=== PATIENT | male | born 1975 | race African-American/Black ===

== ENCOUNTER 2018-06-17 01:07 | Inpatient (IN) | payer OTHER ==
[~2018-06-17] VITALS: Ht 167.6 cm; Wt 60.8 kg
[2018-06-17] VITALS (81 sets, daily range): BP systolic 101–169; BP diastolic 38–114
[~2018-06-17 01:07] MED LIST: CLON0.5T PO; Folic Acid PO; KEPPSOL PO; LORA2VIA34 PO; Multivitamins,Ther W-Minerals PO; PANT40TA4 PO; QUET100T PO; QUET400T PO; Sucralfate PO; Thiamine Hcl PO
[2018-06-17] MEDS ORDERED: EPINEPHRINE 1:1000 1 MG/ML AMP INJ SCH (01:14)
[2018-06-17] MEDS ORDERED: FAMOTIDINE 20MG/2ML VIAL IV ONE (01:15)
[2018-06-17] MEDS ORDERED: DIPHENHYDRAMINE 50MG/ML VIAL IV ONE (01:15)
[2018-06-17] MEDS ORDERED: METHYLPREDNISOLONE SOD SUCC 125 MG/2 ML VIAL IV ONE (01:15)
[2018-06-17] MEDS ORDERED: EPINEPHRINE 1:1000 1 MG/ML AMP INJ ONE (01:15)
[2018-06-17] MEDS ORDERED: ONDANSETRON HCL 4MG/2ML INJ IV STA (01:47)
[2018-06-17] MEDS ORDERED: SODIUM CHLORIDE 0.9% 1,000 ML IV ONE (01:47)
[2018-06-17] MEDS ORDERED: PROPOFOL 10MG/ML 100ML 100 ML IV ONE (01:59)
[2018-06-17] MEDS ORDERED: LORAZEPAM 2MG/ML CPJ IV ONE (02:00)
[2018-06-17 02:09] LABS: HEMATOCRIT. 32.4 % (42.0-52.0); HEMOGLOBIN. 9.8 g/dL (14.0-18.0); MEAN CORPUSCULAR HEMOGLOBIN 21.4 pg (28.0-32.0); MEAN CORPUSCULAR VOLUME 70.6 fL (80.0-94.0); MEAN PLATELET VOLUME 8.3 fl (7.4-10.4); PLATELET 264 x1000/uL (130-400); RED BLOOD CELL COUNT 4.59 mill/uL (4.7-6.1); RED CELL DISTRIBUTION WIDTH 28.2 % (11.6-14.6)
[2018-06-17 02:11] LABS: CHLORIDE 104 mEq/L (98-107)
[2018-06-17] MEDS: PROPOFOL 10MG/ML 100ML 100 ML IV SCH ×4 (02:40→18:05)
[2018-06-17 03:39] LABS: *AMPHETAMINES SCREEN URINE NEGATIVE (NEGATIVE); *BARBITURATES SCREEN URINE NEGATIVE (NEGATIVE); *BENZODIAZEPINES SCREEN URINE PRESUMTIVE POSITIVE (NEGATIVE); *COCAINE SCREEN URINE NEGATIVE (NEGATIVE)
[2018-06-17 03:40] LABS: CANNABINOID URINE SCREEN NEGATIVE (NEGATIVE); METHADONE URINE SCREEN NEGATIVE (NEGATIVE); OPIATES URINE SCREEN NEGATIVE (NEGATIVE); PHENCYCLIDINE URINE SCREEN NEGATIVE (NEGATIVE)
[2018-06-17 04:07] LABS: PLATELET ESTIMATE NORMAL
[2018-06-17 04:19] LABS: BG BASE EXCESS -1.3 mmol/L (-2.0-2.0); BG CARBOXYHEMOGLOBIN 0.8 % (0.5-1.5); BG DEOXYHEMOGLOBIN 0.5 % (0.0-5.0); BG FRACTION INSPIRED OXYGEN 100; BG METHEMOGLOBIN 0.5 % (0.0-1.5); BG OXYGEN SATURATION 99.5 % (92.0-98.5); BG OXYHEMOGLOBIN 98.2 % (94.0-97.0); BG PCO2 36.2 mmHg (35.0-45.0); BG PH 7.421 (7.350-7.450); BG PO2 362.6 mmHg (75.0-100.0); BG SAMPLE SITE LEFT RADIAL; BG TIDAL VOLUME(mL) 500 mL; BG TOTAL HEMOGLOBIN 7.6 g/dL (12.0-18.0); BG VENT MODE VENT - A/C; BG VENT RATE 12 set
[2018-06-17] MEDS: DEXT 5%/0.45% NACL 1000ML 1,000 ML IV SCH ×2 (07:17→18:06)
[2018-06-17] MEDS: METHYLPREDNISOLONE SOD SUCC 40 MG/ML VIAL IV SCH ×4 (08:32→23:34)
[2018-06-17] MEDS: FAMOTIDINE 20MG/2ML VIAL IV SCH ×2 (08:32→20:32)
[2018-06-17] MEDS: ENOXAPARIN 40MG/0.4ML SYR SUBCUT SCH (08:42)
[2018-06-17 08:55] LABS: BG BASE EXCESS -2.1 mmol/L (-2.0-2.0); BG CARBOXYHEMOGLOBIN 0.5 % (0.5-1.5); BG DEOXYHEMOGLOBIN 0.5 % (0.0-5.0); BG FRACTION INSPIRED OXYGEN 50; BG HCO3 ACT 22.9 mmol/L (22.0-26.0); BG OXYGEN SATURATION 99.5 % (92.0-98.5); BG PH 7.375 (7.350-7.450); BG SAMPLE SITE RIGHT BRACHIAL; BG TIDAL VOLUME(mL) 450 mL; BG TOTAL HEMOGLOBIN 9.7 g/dL (12.0-18.0); BG VENT MODE VENT - A/C; BG VENT RATE 12 set
[2018-06-17] MEDS ORDERED: IPRATROPIUM/ALBUTEROL 0.5-3(2.5)MG/3ML NEB HHN PRN (10:45)
[2018-06-17] MEDS: DIPHENHYDRAMINE 50MG/ML VIAL IV PRN ×2 (13:32→18:10)
[2018-06-17] MEDS: IPRATROPIUM/ALBUTEROL 0.5-3(2.5)MG/3ML NEB HHN SCH ×4 (14:44→23:40)
[2018-06-17] MEDS ORDERED: SUCCINYLCHOLINE CHLORIDE 200MG/10ML IV ONE (14:52)
[2018-06-17] MEDS ORDERED: ETOMIDATE 2MG/ML 10ML VIAL IV ONE (14:52)
[2018-06-17] MEDS: LORAZEPAM 2MG/ML CPJ IV PRN ×2 (18:51→23:38)
[2018-06-17] MEDS: PROPOFOL 10MG/ML 100ML 100 ML IV PRN (21:33)
[2018-06-18] VITALS (97 sets, daily range): BP systolic 102–184; BP diastolic 67–111
[2018-06-18] MEDS: DIPHENHYDRAMINE 50MG/ML VIAL IV PRN ×3 (01:10→14:19)
[2018-06-18] MEDS: PROPOFOL 10MG/ML 100ML 100 ML IV PRN ×6 (01:32→22:51)
[2018-06-18] MEDS: DEXT 5%/0.45% NACL 1000ML 1,000 ML IV SCH ×3 (02:31→22:50)
[2018-06-18] MEDS: LORAZEPAM 2MG/ML CPJ IV PRN ×3 (03:52→14:19)
[2018-06-18] MEDS: IPRATROPIUM/ALBUTEROL 0.5-3(2.5)MG/3ML NEB HHN SCH ×5 (04:11→21:13)
[2018-06-18] MEDS ORDERED: CLONIDINE 0.1MG TABLET PO PRN (04:30)
[2018-06-18] MEDS: METHYLPREDNISOLONE SOD SUCC 40 MG/ML VIAL IV SCH ×2 (05:01→12:46)
[2018-06-18 05:31] LABS: HEMOGLOBIN. 9.5 g/dL (14.0-18.0); MEAN CORPUSCULAR HEMOGLOBIN 21.7 pg (28.0-32.0); MEAN CORPUSCULAR VOLUME 70.8 fL (80.0-94.0); PLATELET 181 x1000/uL (130-400); RED BLOOD CELL COUNT 4.37 mill/uL (4.7-6.1); RED CELL DISTRIBUTION WIDTH 28.6 % (11.6-14.6)
[2018-06-18 05:34] LABS: CHLORIDE 102 mEq/L (98-107)
[2018-06-18 05:40] LABS: PHOSPHORUS 4.1 mg/dL (2.5-4.9)
[2018-06-18 08:00] LABS: BG BASE EXCESS 0.8 mmol/L (-2.0-2.0); BG CARBOXYHEMOGLOBIN 0.2 % (0.5-1.5); BG DEOXYHEMOGLOBIN 1.5 % (0.0-5.0); BG FRACTION INSPIRED OXYGEN 35; BG HCO3 ACT 24.1 mmol/L (22.0-26.0); BG METHEMOGLOBIN 0.4 % (0.0-1.5); BG OXYGEN SATURATION 98.5 % (92.0-98.5); BG OXYHEMOGLOBIN 97.9 % (94.0-97.0); BG PCO2 33.8 mmHg (35.0-45.0); BG PH 7.471 (7.350-7.450); BG PO2 128.7 mmHg (75.0-100.0); BG SAMPLE SITE RIGHT BRACHIAL; BG TIDAL VOLUME(mL) 450 mL; BG TOTAL HEMOGLOBIN 10.8 g/dL (12.0-18.0); BG VENT MODE VENT - A/C; BG VENT RATE 12 set
[2018-06-18] MEDS: FAMOTIDINE 20MG/2ML VIAL IV SCH ×2 (08:42→20:01)
[2018-06-18] MEDS: ENOXAPARIN 40MG/0.4ML SYR SUBCUT SCH (08:44)
[2018-06-18] MEDS ORDERED: HYDRALAZINE 20MG/ML VIAL IV PRN (09:00)
[2018-06-18] MEDS ORDERED: HALOPERIDOL LACTATE 5MG/ML VIAL IM NR (11:45)
[2018-06-18 15:13] LABS: PLATELET ESTIMATE NORMAL
[2018-06-18] MEDS: METHYLPREDNISOLONE SOD SUCC 125 MG/2 ML VIAL IV SCH (18:36)
[2018-06-19] VITALS (97 sets, daily range): BP systolic 105–151; BP diastolic 50–99
[2018-06-19] MEDS: METHYLPREDNISOLONE SOD SUCC 125 MG/2 ML VIAL IV SCH ×5 (00:25→23:43)
[2018-06-19] MEDS: IPRATROPIUM/ALBUTEROL 0.5-3(2.5)MG/3ML NEB HHN SCH ×6 (00:47→21:02)
[2018-06-19] MEDS: LORAZEPAM 2MG/ML CPJ IV PRN ×4 (02:02→17:12)
[2018-06-19] MEDS: PROPOFOL 10MG/ML 100ML 100 ML IV PRN ×6 (02:42→23:32)
[2018-06-19] MEDS: DIPHENHYDRAMINE 50MG/ML VIAL IV PRN ×3 (03:00→17:11)
[2018-06-19 05:46] LABS: CHLORIDE 106 mEq/L (98-107)
[2018-06-19] MEDS: FAMOTIDINE 20MG/2ML VIAL IV SCH ×2 (09:42→20:42)
[2018-06-19] MEDS: DEXT 5%/0.45% NACL 1000ML 1,000 ML IV SCH ×2 (09:42→18:08)
[2018-06-19] MEDS: ENOXAPARIN 40MG/0.4ML SYR SUBCUT SCH (09:43)
[2018-06-19 16:48] LABS: HEMATOCRIT. 35.4 % (42.0-52.0); HEMOGLOBIN. 10.9 g/dL (14.0-18.0); MEAN CORPUSCULAR HEMOGLOBIN 21.8 pg (28.0-32.0); MEAN CORPUSCULAR VOLUME 70.7 fL (80.0-94.0); MEAN PLATELET VOLUME 8.3 fl (7.4-10.4); PLATELET 157 x1000/uL (130-400); RED CELL DISTRIBUTION WIDTH 28.5 % (11.6-14.6)
[2018-06-19 16:49] LABS: CHLORIDE 107 mEq/L (98-107)
[2018-06-19 17:22] LABS: PLATELET ESTIMATE NORMAL
[2018-06-19] MEDS: HALOPERIDOL 1MG TABLET PO SCH (22:46)
[2018-06-20] VITALS (71 sets, daily range): BP systolic 97–155; BP diastolic 61–99
[2018-06-20] MEDS: IPRATROPIUM/ALBUTEROL 0.5-3(2.5)MG/3ML NEB HHN SCH ×5 (00:29→16:17)
[2018-06-20] MEDS: LORAZEPAM 2MG/ML CPJ IV PRN ×3 (00:47→10:04)
[2018-06-20] MEDS: DEXT 5%/0.45% NACL 1000ML 1,000 ML IV SCH ×2 (00:54→12:45)
[2018-06-20] MEDS: PROPOFOL 10MG/ML 100ML 100 ML IV PRN ×3 (02:52→10:04)
[2018-06-20] MEDS: METHYLPREDNISOLONE SOD SUCC 125 MG/2 ML VIAL IV SCH ×2 (05:29→12:45)
[2018-06-20 05:43] LABS: CHLORIDE 107 mEq/L (98-107)
[2018-06-20 05:45] LABS: HEMATOCRIT. 32.5 % (42.0-52.0); HEMOGLOBIN. 10.1 g/dL (14.0-18.0); MEAN CORPUSCULAR HEMOGLOBIN 21.6 pg (28.0-32.0); MEAN CORPUSCULAR VOLUME 69.7 fL (80.0-94.0); RED BLOOD CELL COUNT 4.66 mill/uL (4.7-6.1); RED CELL DISTRIBUTION WIDTH 28.5 % (11.6-14.6)
[2018-06-20] MEDS ORDERED: LEVETIRACETAM 500MG PREMIX 100 ML IV ONE (07:45)
[2018-06-20] MEDS: FAMOTIDINE 20MG/2ML VIAL IV SCH (08:12)
[2018-06-20] MEDS: HALOPERIDOL 1MG TABLET PO SCH (08:13)
[2018-06-20] MEDS: DIPHENHYDRAMINE 50MG/ML VIAL IV PRN ×2 (08:13→15:42)
[2018-06-20] MEDS: ENOXAPARIN 40MG/0.4ML SYR SUBCUT SCH (08:23)
[2018-06-20] MEDS ORDERED: LEVETIRACETAM 500 MG in SODIUM CHLORIDE 0.9% 100 ML IV SCH (09:00)
[2018-06-20 11:03] LABS: MEAN PLATELET VOLUME 8.9 fl (7.4-10.4); PLATELET 152 x1000/uL (130-400); PLATELET ESTIMATE NORMAL
[2018-06-20] MEDS: RACEPINEPHRINE 2.25% 0.5ML NEB VIAL HHN PRN ×2 (12:13→16:17)
[2018-06-20] MEDS ORDERED: NICOTINE 21MG PATCH TD SCH (13:00)
[2018-06-20 13:40] LABS: BG BASE EXCESS 3.1 mmol/L (-2.0-2.0); BG CARBOXYHEMOGLOBIN 0.6 % (0.5-1.5); BG DEOXYHEMOGLOBIN 2.9 % (0.0-5.0); BG FRACTION INSPIRED OXYGEN 35; BG HCO3 ACT 26.9 mmol/L (22.0-26.0); BG METHEMOGLOBIN 0.2 % (0.0-1.5); BG OXYGEN SATURATION 97.1 % (92.0-98.5); BG OXYHEMOGLOBIN 96.3 % (94.0-97.0); BG PH 7.468 (7.350-7.450); BG PO2 98.1 mmHg (75.0-100.0); BG PRESSURE SUPPORT 8; BG SAMPLE SITE RIGHT RADIAL; BG TOTAL HEMOGLOBIN 10.8 g/dL (12.0-18.0); BG VENT MODE VENT - CPAP
[2018-06-20 13:56] LABS: CLARITY URINE CLEAR (CLEAR); COLOR URINE YELLOW (YELLOW); KETONES URINE NEGATIVE (NEGATIVE); LEUKOCYTE ESTERASE URINE NEGATIVE (NEGATIVE); NITRITE URINE NEGATIVE (NEGATIVE); OCCULT BLOOD URINE NEGATIVE (NEGATIVE); PROTEIN URINE NEGATIVE (NEGATIVE); SPECIFIC GRAVITY URINE 1.017 (1.005-1.030)
[2018-06-20] MEDS ORDERED: PIPERACILLIN/TAZ 3.375G PREMIX 50 ML IV SCH (16:00)
[2018-06-20] MEDS ORDERED: METHYLPREDNISOLONE SOD SUCC 40 MG/ML VIAL IV SCH (18:00)
== END 2018-06-20 17:45 | disposition left against medical advice (07) | DRG 811 ==
LOC: ER 01:07 → MICUNO 03:43 → EDBEDREQ 03:50 → ENRESERV 04:12 → MICUNO 07:00
PROVIDERS: ADMIT Internal Medicine; ATTEND Internal Medicine
PROC: 5A1945Z Respiratory Ventilation, 24-96 Consecutive Hours (ICD-10-PCS; principal; 2018-06-17)
PROC: 0BH17EZ Insertion of Endotracheal Airway into Trachea, Via Natural or Artificial Opening (ICD-10-PCS; 2018-06-17)
PROC: 05HH33Z Insertion of Infusion Device into Left Hand Vein, Percutaneous Approach (ICD-10-PCS; 2018-06-17)
PROC: B54NZZA Ultrasonography of Left Upper Extremity Veins, Guidance (ICD-10-PCS; 2018-06-17)
DX: T78.04XA Anaphylactic reaction due to fruits and vegetables, initial encounter (principal); J96.00 Acute respiratory failure, unspecified whether with hypoxia or hypercapnia; J69.0 Pneumonitis due to inhalation of food and vomit; G93.40 Encephalopathy, unspecified; E87.0 Hyperosmolality and hypernatremia; F20.9 Schizophrenia, unspecified; T78.3XXA Angioneurotic edema, initial encounter; D72.829 Elevated white blood cell count, unspecified; F32.9 Major depressive disorder, single episode, unspecified; G40.909 Epilepsy, unspecified, not intractable, without status epilepticus; Z53.21 Procedure and treatment not carried out due to patient leaving prior to being seen by health care provider; T38.0X5A Adverse effect of glucocorticoids and synthetic analogues, initial encounter; D64.9 Anemia, unspecified; R73.9 Hyperglycemia, unspecified; Z88.8 Allergy status to other drugs, medicaments and biological substances; Y92.89 Other specified places as the place of occurrence of the external cause
CPT/HCPCS: 36415; 36569; 36600; 71045; 76937; 80048; 80305; 82375; 82805; 83036; 83735; 83880; 84100; 84478; 84484; 85007; 85027; 87070; 87077; 93005; 94003; 94640; 96374; 99285; C1725; J0330; J0360; J1200; J1630; J1650; J1953; J2060; J2405; J2543; J2704; J2920; J2930; J3490; J7030; J7050; J7620; A4315